=== PATIENT | female | born 2000 | race African-American/Black ===

== ENCOUNTER 2021-08-13 11:51 | Emergency (ER) | payer MEDICAID ==
[~2021-08-13] VITALS: Ht 165.1 cm; Wt 70.0 kg
[2021-08-13 19:46] VITALS: BP 120/80
== END 2021-08-13 19:52 | disposition left against medical advice (07) ==
LOC: ER 11:51
DX: T43.621A Poisoning by amphetamines, accidental (unintentional), initial encounter (principal); F15.188 Other stimulant abuse with other stimulant-induced disorder; R45.1 Restlessness and agitation; F20.9 Schizophrenia, unspecified; Y92.488 Other paved roadways as the place of occurrence of the external cause
CPT/HCPCS: 99283